=== PATIENT | female | born 1955 | race Caucasian/White ===

== ENCOUNTER 2017-01-16 23:41 | Emergency (ER) | payer OTHER ==
[~2017-01-16] VITALS: Ht 165.1 cm; Wt 72.6 kg
[2017-01-16 23:45] VITALS: BP_SYST 156
[2017-01-17 00:50] VITALS: BP_SYST 150
[2017-01-17] MEDS ORDERED: HYDROcodone/ACETAMIN 5-325 MG TAB (NORCO/ VICODIN) PO ONE (01:00)
== END 2017-01-17 00:50 | disposition home or self-care (01) ==
LOC: SED 23:41
DX: S09.90XA Unspecified injury of head, initial encounter (principal); W01.0XXA Fall on same level from slipping, tripping and stumbling without subsequent striking against object, initial encounter; Y93.54 Activity, bowling; Y92.89 Other specified places as the place of occurrence of the external cause; Y99.8 Other external cause status
CPT/HCPCS: 70450-TC; 99284

== ENCOUNTER 2017-04-19 05:46 | Day surgery (SDC) | payer OTHER ==
[~2017-04-19] VITALS: Ht 165.1 cm; Wt 72.6 kg
[2017-04-19] MEDS ORDERED: IOHEXOL 50 ML IV ONE (08:03)
[2017-04-19] MEDS ORDERED: LR 1,000 ML IV SCH (08:26)
[2017-04-19] MEDS ORDERED: MORPHINE 4 MG/ML INJ. SYRINGE IVP PRN ×3 (08:30)
[2017-04-19] MEDS ORDERED: METOCLOPRAMIDE HCL 10 MG/2 ML VIAL IVP PRN (08:30)
[2017-04-19] MEDS ORDERED: D5/0.45 NS 1,000 ML IV SCH (08:53)
[2017-04-19] MEDS ORDERED: HYDROmorphone 1 MG INJ. 1 MG/ML AMPUL IVP PRN (09:00)
[2017-04-19] MEDS ORDERED: HYDROcodone/ACETAMIN 5-325 MG TAB (NORCO/ VICODIN) PO PRN ×2 (09:00)
[2017-04-19] MEDS ORDERED: GLYCOPYRROLATE 0.2 MG/ML VIAL IJ ONE (09:15)
[2017-04-19] MEDS ORDERED: MIDAZOLAM HCL 5 MG/ML VIAL (VERSED) IV ONE (09:15)
[2017-04-19] MEDS ORDERED: fentaNYL CITRATE/PF 100 MCG/2 ML AMP IVP ONE (09:15)
[2017-04-19] MEDS ORDERED: LR 1,000 ML IV.SOLN IV ONE (09:15)
[2017-04-19] MEDS ORDERED: PROPOFOL 200MG/ 20ML VIAL (DIPRIVAN) IV ONE (09:15)
[2017-04-19] MEDS ORDERED: NEOSTIGMINE METHYLSULFATE 1 MG/ML, 10 ML VIAL IVP ONE (09:15)
[2017-04-19] MEDS ORDERED: SEVOFLURANE 15 MIN GAS INH ONE (09:15)
[2017-04-19] MEDS ORDERED: PHENYLEPHRINE HCL 10 MG/ML VIAL (NEOSYNEPHRINE) IV ONE (09:15)
[2017-04-19] MEDS ORDERED: CLINDAMYCIN PHOSPHATE 600 mg/50mL D5W IV ONE (09:15)
[2017-04-19 10:11] VITALS: BP_SYST 131
[2017-04-19] MEDS ORDERED: HYDROcodone/ACETAMIN 5-325 MG TAB (NORCO/ VICODIN) ONE (10:40)
== END 2017-04-19 11:40 | disposition home or self-care (01) ==
LOC: SMU 05:46 → SDS 05:46
PROVIDERS: ATTEND Colon & Rectal Surgery
DX: K80.10 Calculus of gallbladder with chronic cholecystitis without obstruction (principal); E78.5 Hyperlipidemia, unspecified; Z98.890 Other specified postprocedural states; Z82.49 Family history of ischemic heart disease and other diseases of the circulatory system; Z83.49 Family history of other endocrine, nutritional and metabolic diseases; Z80.3 Family history of malignant neoplasm of breast; Z79.899 Other long term (current) drug therapy; Z88.0 Allergy status to penicillin
CPT/HCPCS: 47563; 74300; 88304; C1727; C1758; J2250; J2370; J2704; J2710; J3010; J3490 ×2; J7120; Q9967